=== PATIENT | male | born 1950 | race Caucasian/White ===

== ENCOUNTER → 2022-02-21 | Outpatient (CLI) | payer MEDICARE | LOC: KOH-I 09:39 | DX: Z86.16 Personal history of COVID-19 (principal) | CPT/HCPCS: 71046 ==

== ENCOUNTER → 2022-03-10 | Outpatient (CLI) | payer MEDICARE | LOC: HEART 5 10:21 | DX: R06.00 Dyspnea, unspecified (principal) | CPT/HCPCS: 94060; 94729 ==